=== PATIENT | female | born 1970 | race African-American/Black ===

== ENCOUNTER → 2017-03-20 | Outpatient (CLI) | payer OTHER ==
[~2017-03-20] MED LIST: ALLOPURINOL300 MG PO; ALPRAZOLAM PO; CLARITIN10 MG PO; FERROUS GL325 ( 36 ) PO; FOLIC ACID PO; HYDROCODON-ACE1 EAC7 PO; IBUPROFEN PO; LYRICA PO; NABUMETONE PO; PREDNISONE PO; SKELAXIN PO; VICODIN 5/500 T1 TAB PO; VIT B-12 PO; ZANTAC PO
--- NOTE | ~2017-03-20 | CT2 ---
[facility] A Service of [facility] & [facility] RADIOLOGY TEXT RESULTS PATIENT: JOSÉ HATFIELD [facility] [birth year] UNIT #: [id number] AGE: [address]: Mirna Vallejo MD SEX: F ORDER DR: [id number] [facility] [address] [place], [place] [address] [id number] O MR#: [id number] Acc #: [id number] NAME: JOSÉ HATFIELD : 1970 SEX: F STUDY DATE/TIME: UNIT: [facility] ROOM: STUDY DESCRIPTION: CT Abd and Pelv W Cont Attending Physician: Mirna Vallejo M.D., Ph.D. Referring Physician: Mirna Vallejo M.D., Ph.D. Ordering Physician: Mirna Vallejo M.D., Ph.D. Primary Care Physician: Duglas Phillips M.D. 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 No current complaints in the chest, abdomen or pelvis. Observation for suspected malignant neoplasm. COMPARISON 05/11/[address] images were obtained from the lung bases through the pubic symphysis with intravenous contrast only. Isovue-370 100 mL IV. Sagittal and coronal reconstructions were performed. Total exam DLP for the chest, abdomen and pelvis exam is 1468 mGy - cm. This CT exam was performed with one or more of the following radiation dose reduction techniques: automatic exposure control, adjustment of mA and/or kV according to patient size, and iterative reconstruction. FINDINGS The liver, spleen, pancreas, gallbladder, bile ducts, adrenal glands and kidneys are normal. The abdominal aorta is normal in caliber. There is no mesenteric or upper abdominal adenopathy. The stomach, small bowel and colon appear normal. CT pelvis demonstrates no residual pathologic adenopathy. There is a tiny remnant of a bulky node in the left external iliac chain with a short axis measuring 6 mm, previously 1.4 cm on 05/11/2015. There are no residual inguinal nodes. The bone window images demonstrate no bone lesions. [facility] A Service of [facility] & [facility] RADIOLOGY TEXT RESULTS PATIENT: JOSÉ HATFIELD LOCATION: [facility] : [birth year] UNIT #: [id number] AGE: [address]: Mirna Vallejo MD SEX: F ORDER DR: IMPRESSION There is no pathologic adenopathy in the abdomen or pelvis. At the site of bulky inguinal adenopathy seen previously, there is a residual node and external iliac chain measuring 6 mm short axis previously 1.4 cm. This is not pathologically enlarged and likely represents residua from previous disease. Dictated by... Aide Maher M.D. THIS IS AN ELECTRONICALLY VERIFIED REPORT Aide Maher M.D. at 03/21/2017 9:27 AM DAYANA/micky TD: 03/20/2017 15:59 JOB #: [id number] MEDICAL IMAGING REPORT Page 1 of 1 COPY
--- NOTE | ~2017-03-20 | CT55 ---
[facility] A Service of [facility] & [facility] RADIOLOGY TEXT RESULTS PATIENT: JOSÉ HATFIELD LOCATION: [facility] : 66 UNIT #: [id number] AGE: [address]: Mirna Vallejo MD SEX: F ORDER DR: [id number] [facility] [address] [place], [place] [address] [id number] O MR#: [id number] Acc #: [id number] NAME: JOSÉ HATFIELD : 1970 SEX: F STUDY DATE/TIME: 03/20/2017 11:57 UNIT: [facility] ROOM: STUDY DESCRIPTION: CT Chest W Con Attending Physician: Mirna Vallejo M.D., Ph.D. Referring Physician: Mirna Vallejo M.D., Ph.D. Ordering Physician: Mirna Vallejo M.D., Ph.D. Primary Care Physician: Duglas Phillips M.D. MEDICAL IMAGING REPORT This report is preliminary unless electronic signature is present EXAM CT chest with contrast, 03/20/2017 11:57 hours HISTORY 46-year-old woman with history of mantle cell lymphoma diagnosed November 2014. History of bone marrow transplant and chemotherapy. No current chest complaints. COMPARISON 05/11/[address] images were obtained from the thoracic inlet through the adrenal glands. Sagittal and coronal reconstructions were performed. Contrast was Isovue-370, 100 mL IV. Total exam DLP PA for the chest, abdomen pelvis study today is 1468 mGy-cm. This CT exam was performed with one or more of the following radiation dose reduction techniques: automatic exposure control, adjustment of mA and/or kV according to patient size, and iterative reconstruction. FINDINGS Images through the thoracic inlet demonstrate no thyroid mass or supraclavicular adenopathy. There is no axillary adenopathy. Images through the chest demonstrate mild reticulonodular change in the anterior mediastinal fat, likely thymic tissue. No discreet measurable density. This is slightly increased from 05/11/2015 and could represent thymic rebound. The aorta, pulmonary arteries, cardiac chambers and esophagus are normal. There is no hilar or mediastinal adenopathy. No subcarinal nodes. The lungs are clear. There is no pleural effusion. [facility] A Service of [facility] RADIOLOGY TEXT RESULTS PATIENT: JOSÉ HATFIELD LOCATION: [facility] : 66 UNIT #: [id number] AGE: [address]: Mirna Vallejo MD SEX: F ORDER DR: Please see CT abdomen report for findings below the diaphragms. IMPRESSION 1. There is no pathologic adenopathy in the chest. The lungs are clear and there are no effusions. 2. There is a slight increase in reticulonodular density in the anterior mediastinal fat most likely representing thymic tissue or thymic rebound. This is slightly increased from 05/11/2015. No discreet measurable nodule is seen. Dictated by... Aide Maher M.D. THIS IS AN ELECTRONICALLY VERIFIED REPORT Aide Maher M.D. at 03/21/2017 9:27 AM Isaac TD: 03/20/2017 15:54 JOB #: [id number] MEDICAL IMAGING REPORT Page 1 of 1 COPY
[2017-03-20 13:15] LABS: POC - GFR >60.0 mL/min (>60)
== END | disposition home or self-care (01) ==
LOC: CCAT 09:50
PROVIDERS: Internal Medicine Hematology & Oncology
DX: C83.19 Mantle cell lymphoma, extranodal and solid organ sites (principal); C85.88 Other specified types of non-Hodgkin lymphoma, lymph nodes of multiple sites; J98.59 Other diseases of mediastinum, not elsewhere classified
CPT/HCPCS: 71260; 74177; 82565; Q9967